=== PATIENT | female | born 2005 | race Caucasian/White ===

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

== ENCOUNTER 2024-02-28 09:38 | Outpatient (CLI) | payer MEDICAID | END 2024-02-28 23:59 | disposition home or self-care (01) | LOC: RAD 09:38 | PROVIDERS: ATTEND Student in an Organized Health Care Education/Training Program | DX: Z34.92 Encounter for supervision of normal pregnancy, unspecified, second trimester (principal); Z3A.22 22 weeks gestation of pregnancy | CPT/HCPCS: 76811 ==

== ENCOUNTER 2024-03-29 11:30 | Emergency (ER) | payer MEDICAID ==
[~2024-03-29] VITALS: Ht 165.1 cm; Wt 61.5 kg
[2024-03-29 11:45] VITALS: TEMP 98.6
[2024-03-29 12:22] VITALS: BP 108/63; PULSE 70; RESP 18; O2SAT 96
[2024-03-29 12:37] LABS: BASOPHILS # (AUTO) 0.1 X10'3 (0-0.2); BASOPHILS % (AUTO) 0.6 % (0-1); EOSINOPHILS % (AUTO) 0.3 % (0-6); HEMATOCRIT 38.2 % (35.0-45.0); HEMOGLOBIN 13.2 g/dl (12.0-16.0); LYMPHOCYTES # (AUTO) 1.7 X10'3 (1.1-4.8); LYMPHOCYTES % (AUTO) 17.2 % (21-51); MEAN CORPUSCULAR HEMOGLOBIN 31.4 PG (27.0-31.0); MEAN CORPUSCULAR HGB CONC 34.4 g/dL (33.0-36.5); MEAN CORPUSCULAR VOLUME 91.2 FL (78-98); MONOCYTES # (AUTO) 0.5 X10'3 (0-0.9); MONOCYTES % (AUTO) 4.9 % (2-12); NEUTROPHILS # (AUTO) 7.6 X10'3 (1.8-7.7); PLATELET COUNT 175 X10'3 (140-440); RED BLOOD COUNT 4.19 X10'6 (4.20-5.60); RED CELL DISTRIBUTION WIDTH 13.5 % (11.5-14.5); WHITE BLOOD COUNT 9.9 X10'3 (4.5-11.0)
[2024-03-29 12:44] LABS: URINE HCG POSITIVE (NEG)
[2024-03-29 12:48] LABS: BILIRUBIN,URINE NEGATIVE (Neg); CLARITY,URINE CLEAR (Clear); COLOR,URINE YELLOW (Yellow); GLUCOSE, URINE NEGATIVE (Neg); KETONES,URINE NEGATIVE (Neg); LEUKOCYTE ESTERASE ,URINE NEGATIVE (Neg); NITRITES, URINE NEGATIVE (Neg); OCCULT BLOOD,URINE NEGATIVE (Neg); PH,URINE 6.5 (4.8-8.0); PROTEIN,URINE NEGATIVE (Neg); UROBILINOGEN,URINE 0.2 E.U/dL (0.2-1.0)
[2024-03-29 12:53] LABS: ALANINE AMINOTRANSFERASE 21 U/L (12-78); ALBUMIN 2.7 G/DL (3.4-5.0); ALBUMIN/GLOBULIN RATIO 0.7 (1.1-1.5); ALKALINE PHOSPHATASE 50 IU/L (20-180); ANION GAP 8 (8-16); ASPARTATE AMINO TRANSFERASE 11 U/L (10-37); BILIRUBIN,TOTAL 0.3 MG/DL (0.1-1.0); BLOOD UREA NITROGEN 6 MG/DL (7-18); CALCIUM 8.5 MG/DL (8.5-10.1); CHLORIDE 107 MMOL/L (99-107); GLUCOSE 91 MG/DL (70-104); LIPASE 17 U/L (16-77); POTASSIUM 3.5 MMOL/L (3.5-5.1); SODIUM 138 MMOL/L (135-145); TOTAL CARBON DIOXIDE 23.5 MMOL/L (24-32); TOTAL PROTEIN 6.4 G/DL (6.4-8.2); eCRCL 162 ML/MIN; eGFR > 90 ML/MIN
[2024-03-29 12:55] LABS: UA COLLECTION TYPE CLN CATCH MIDSTREAM
== END 2024-03-29 14:45 | disposition home or self-care (01) ==
LOC: ER 11:31
DX: O26.892 Other specified pregnancy related conditions, second trimester (principal); M54.50 Low back pain, unspecified; R10.30 Lower abdominal pain, unspecified; F41.9 Anxiety disorder, unspecified; Z3A.26 26 weeks gestation of pregnancy; Z79.899 Other long term (current) drug therapy
CPT/HCPCS: 36415; 76805; 76815; 80053; 81003; 81025; 83690; 85025; 99284

== ENCOUNTER 2024-04-12 01:51 | Emergency (ER) | payer MEDICAID ==
[~2024-04-12] VITALS: Ht 165.1 cm; Wt 62.3 kg
[2024-04-12 01:55] VITALS: BP 107/64; PULSE 77; RESP 18; TEMP 98.3; O2SAT 96
[2024-04-12] MEDS ORDERED: HYDROcodone/acetaminophen 5mg/325mg tablet PO ONE (02:15)
[2024-04-12] MEDS: acetaminophen 325mg tablet PO ONE (02:24)
[2024-04-12] MEDS: ketorolac trometh. 30mg/ml inj. IM ONE (02:25)
[2024-04-12] MEDS: ondansetron 4mg rapidly disintigrating tab PO ONE (02:25)
[2024-04-12] MEDS ORDERED: CLIN-214 PO (02:38)
[2024-04-12] MEDS ORDERED: HYDR-3965 PO (02:38)
[2024-04-12] MEDS: bacitracin 15gm ointment TP ONE (03:08)
[2024-04-12] MEDS: clindamycin 150mg capsule PO ONE (03:08)
== END 2024-04-12 03:16 | disposition home or self-care (01) ==
LOC: ER 01:51
DX: S90.511A Abrasion, right ankle, initial encounter (principal); Z79.899 Other long term (current) drug therapy; W55.89XA Other contact with other mammals, initial encounter; Y93.89 Activity, other specified; Y92.89 Other specified places as the place of occurrence of the external cause; Y99.8 Other external cause status
CPT/HCPCS: 73600; 99284; J7030; A6449